=== PATIENT | female | born 1985 | race Caucasian/White ===

== ENCOUNTER 2016-12-12 16:11 | Emergency (ER) | payer OTHER | END 2016-12-12 19:35 | disposition home or self-care (01) | LOC: ER1 16:11 | DX: M79.661 Pain in right lower leg (principal); I10 Essential (primary) hypertension; E07.9 Disorder of thyroid, unspecified; F17.210 Nicotine dependence, cigarettes, uncomplicated; Z88.0 Allergy status to penicillin; Z79.84 Long term (current) use of oral hypoglycemic drugs; Z79.899 Other long term (current) drug therapy | CPT/HCPCS: 36415; 85379; 96372; 99283; J1885 ==

== ENCOUNTER → 2016-12-13 | Outpatient (CLI) | payer OTHER | LOC: US 11:00 | DX: R60.0 Localized edema (principal); M79.661 Pain in right lower leg | CPT/HCPCS: 93971 ==

== ENCOUNTER 2022-03-23 10:46 | Emergency (ER) | payer BC ==
[2022-03-23 12:48] LABS: HEMOGLOBIN 16.2 gm/dl (12.3-15.3); RED BLOOD COUNT 5.48 M/UL (4.00-5.10); WHITE BLOOD COUNT 13.1 K/UL (4.5-11.0)
[2022-03-23 13:12] LABS: BUN/CREATININE RATIO 12 (0-10)
[2022-03-23] MEDS ORDERED: TORADOL 10 MG T10 MG PO (14:10)
== END 2022-03-23 15:00 | disposition home or self-care (01) ==
LOC: ER1 10:46
PROVIDERS: Nurse Practitioner
DX: M54.50 Low back pain, unspecified (principal); G89.29 Other chronic pain; E11.9 Type 2 diabetes mellitus without complications; I10 Essential (primary) hypertension; Z88.0 Allergy status to penicillin; F17.210 Nicotine dependence, cigarettes, uncomplicated
CPT/HCPCS: 72131; 80053; 85025; 85652; 86140; 96374; 99284; J1885